=== PATIENT | male | born 1940 | race Caucasian/White ===

== ENCOUNTER → 2016-08-23 | Day surgery (SDC) | payer MEDICARE, BC ==
[~2016-08-23] VITALS: Ht 174 cm; Wt 80.1 kg
[~2016-08-23] MED LIST: ACETAMINOPHEN 500 MG CPLT PO PRN; ATROPINE SULFATE 1% OPHT SOLN 2 ML BTL ONE; BALANCED SALT SOLN OPHT IRRIG 15 ML BTL ONE; CHLORHEXIDINE GLUCONATE 2 % 1 PACK (2 CLOTHS) TOPICAL PRN; CYCLOPENTOLATE HCL 1% OPHT SOLN 2 ML BTL ONE; DEXAMETHASONE SOD PHOS 4 MG/ML VIAL ONE; DICL75TA PO; DO NOT ADM ANY ANTICOAGULANT DRUGS PRN; EPINEPHrine HCL (1:1000) 1 MG/ML VIAL ONE; INSULIN HUMAN REGULAR 1,000 UNITS/10 ML VIAL SQ PRN; LACTATED RINGER'S 1000 ML IV PRN; LISI-515 PO; METOPROLOL TARTRATE 25 MG TAB PO PRN; MIDAZOLAM HCL 2 MG/2 ML VIAL ONE; ONDANSETRON HCL 4 MG/2 ML VIAL IM PRN; ONDANSETRON HCL 4 MG/2 ML VIAL IV PUSH ONE; PHENYLEPHRINE HCL 0.5% NASAL SPRAY 15 ML BTL ONE; PHENYLEPHRINE HCL 2.5% OPTH SOLN 2 ML BTL ONE; PLAQ200T PO; POVIDONE IODINE 5% (ANTISEPSIS KIT) 4 APPLICATIONS EACH NARE PRN; PROPOFOL 200 MG/20 ML AMP IV ONE; SIMV40TA PO; SODIUM CHLORID 0.9% 500 ML IV PRN; STERILE WATER FOR INJ 20 ML VIAL ONE; TOBRAMYCIN/DEXAMETHASONE OPTH OINT 3.5 GM TUBE ONE; TRIAMCINOLONE ACETONIDE/PF 40 MG/ML OPTH VIAL ONE; TROPICAMIDE 1% OPHT SOLN 15 ML BTL ONE; VERA40TA PO; ZOLO25TA PO; ceFAZolin INJ 1,000 MG VIAL ONE; oxyCODONE/ACETAMINOPHEN 5 MG/325 MG TAB PO PRN
[2016-08-23 09:24] VITALS: BP 147/71; PULSE 50; RESP 16; TEMP 97.9; O2SAT 97
[2016-08-23] MEDS: ATROPINE SULFATE 1% OPHT SOLN 5 ML BTL LEFT EYE SCH ×3 (10:15→10:45)
[2016-08-23] MEDS: TROPICAMIDE 1% OPTH SOLN 2 ML BTL LEFT EYE SCH ×3 (10:15→10:45)
[2016-08-23] MEDS: PHENYLEPHRINE HCL 2.5% OPTH SOLN 2 ML BTL LEFT EYE SCH ×3 (10:15→10:45)
[2016-08-23] MEDS: CYCLOPENTOLATE HCL 1% OPHT SOLN 2 ML BTL LEFT EYE SCH ×3 (10:15→10:45)
[2016-08-23 13:36] VITALS: BP 133/62; PULSE 51; RESP 20; TEMP 97.6; O2SAT 98
--- NOTE | 2016-08-23 13:44 | EKG ---
Date Performed: 08/23/2016 Time Performed: 09:45:02 PTAGE: 76 years EKG: SINUS BRADYCARDIA MODERATE VOLTAGE CRITERIA FOR LVH, CONSIDER NORMAL VARIANT BORDERLINE ECG NO PREVIOUS TRACING DOCTOR: Freddy Das Interpretating Date/Time 08/23/2016 13:41:11
--- NOTE | 2016-08-26 19:16 | MP ---
cc: LUISA ALEMAN M.D. DATE OF SURGERY: 08/23/2016. 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 OPERATIVE PROCEDURE PERFORMED: Trans pars plana vitrectomy with membranectomy and air-fluid exchange, left eye. SURGEON: Luisa Aleman MD. ANESTHESIA: General laryngeal mask anesthesia. INDICATIONS FOR THE PROCEDURE: Mr. Hanna is a 76-year-old gentleman with a history of decreasing central vision in his left eye. He was found to have a membrane and a lamellar hole. He wished to proceed electively with removal of the membrane to help stabilize the left eye and hopefully improve visual functioning. The risks and benefits of surgery were discussed with the patient and informed consent was obtained. No guarantee was made as to visual outcome. DESCRIPTION OF THE PROCEDURE IN DETAIL: He was brought to [facility] Operating Room #1 and placed on the operating table. Appropriate anesthesia monitoring devices were applied and he was placed under general anesthesia using a laryngeal mask. The left eye was identified as the operative site and prepped and draped in usual sterile fashion. A lid speculum was placed and the microscope was brought around and adjusted. At this point, an appropriate time-out was called with the surgical team agreeing to the surgical site and planned procedure. Using the Keith 23-gauge vitrectomy system, the trocar cannulas were placed 3.5 mm posterior to the limbus. The first was placed at approximately 3:15 o'clock and verified to be in the posterior chamber. An infusion cannula was affixed to it and it was turned on. Two additional trocar cannulas were placed in a similar fashion at 10 and 2 o'clock. A small amount of Kenalog was injected to help visualize the vitreous. Using the vitrectomy cutter and light pipe and the BIOME wide angle viewing system, a vitrectomy was carried out centrally and into the periphery. Excess Kenalog was vacuumed off the retinal surface. the lens was switched to the higher magnification flat contact lens and using it and the Nick membrane scraper, the membrane was teased up starting inferonasally and then removed out superotemporally. Plugs were placed back in the eye and the fundus was inspected with the indirect ophthalmoscope aided by scleral depression. No retinal breaks were detected. An air-fluid exchange was then performed using a soft tipped linear extrusion needle. the plugs were placed back in the cannulas and then they were removed one by one with tamponade of the site with a cotton swab leaving the eye with good pressure and no obvious air leaks. Atropine drops were placed on the cornea. Subconjunctival injections of Ancef 125 mg in 0.5 cc and Decadron 2 mg in 0.5 cc were given at separate sites. The lid speculum was removed. The patient was undraped and TobraDex ointment was placed on the cornea. The left eye was then patched and shielded and the patient had the laryngeal mask removed in the room and was returned to recovery in good condition laying on his right side. When awake and alert, he will be asked to assume a face-down position. MD VALENTIN Barraza/JORGE /12:47 PM /7:11 PM
== END | disposition home or self-care (01) ==
LOC: HSDC 08:40
PROVIDERS: ATTEND Ophthalmology
DX: H35.342 Macular cyst, hole, or pseudohole, left eye (principal); H35.372 Puckering of macula, left eye; Z01.810 Encounter for preprocedural cardiovascular examination
CPT/HCPCS: 00145; 67025; 67041; 93005; J0171; J0690; J1100; J2250; J2405; J3010; J3300; J7120